=== PATIENT | female | born 1930 | race Caucasian/White ===

== ENCOUNTER 2016-10-29 09:11 | Outpatient (CLI) | payer MEDICARE, OTHER ==
[2015-05-30 21:24] VITALS: BP 155/82
--- NOTE | 2016-10-29 15:04 | Diagnostic Imaging Report ---
CAROLE GRANT [facility] [address] [facility] [address] [address] Report Submission Date: Oct 29, 2016 9:47:08 AM CHILDREN'S LIBRARIAN Patient Study Name: JAILYN GRANT Date: Oct 29, 2016 9:20:49 AM CHILDREN'S LIBRARIAN Modality Type: CR Gender: F Description: LOWER EXTREMITY : 30 Institution: [facility] Physician: CAROLE GRANT 3 views of the left knee History: LT. KNEE- PAIN IN LEFT KNEE X2-3 WEEKS. INCREASED PAIN THIS MORNING IN ANTERIOR KNEE Findings: No comparison studies No evidence of acute fracture or dislocation of the left knee. There is tricompartmental degenerative change. Medial knee joint space and femoral patellar joint space is narrowed Patellar enthesophytes are present, a small suprapatellar effusion is present Bones are demineralized Impression: No evidence of acute fracture or dislocation of the left knee Small suprapatellar effusion Demineralized bones Tricompartmental degenerative change Electronically signed on Oct 29, 2016 9:47:08 AM CHILDREN'S LIBRARIAN by: Sandra RINCON
== END 2016-10-29 09:12 ==
LOC: RAD 09:11
PROVIDERS: ATTEND Family Medicine
DX: M25.562 Pain in left knee (principal)
CPT/HCPCS: 73562

== ENCOUNTER 2017-04-02 20:10 | Outpatient (CLI) | payer MEDICARE, OTHER ==
[2015-05-30 21:24] VITALS: BP 155/82
--- NOTE | 2017-04-03 06:50 | Diagnostic Imaging Report ---
CAROLE GRANT [facility] [address] [facility].[address] [address] Report Submission Date: Apr 02, 2017 9:01:50 PM CDT Patient Study Name: JAILYN GRANT Date: Apr 02, 2017 8:46:22 PM CDT Modality Type: CR Gender: F Description: UPPER EXTREMITY : 30 Institution: [facility] Physician: CAROLE GRANT Examination: Plain film wrist History: Wrist discomfort Comparison exams: None available Findings: 3 views the wrist demonstrates osteopenia. 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 No fracture. No dislocation. No soft tissue abnormality. Impression: Osteopenia and degenerative changes. No acute osseous abnormality Electronically signed on Apr 02, 2017 9:01:50 PM CDT by: Navneet RINCON
== END 2017-04-02 20:11 ==
LOC: RAD 20:10
PROVIDERS: ATTEND Family Medicine
DX: M25.532 Pain in left wrist (principal)
CPT/HCPCS: 73110; L3908

== ENCOUNTER 2017-04-18 12:19 | Outpatient (CLI) | payer MEDICARE, OTHER ==
[2015-05-30 21:24] VITALS: BP 155/82
--- NOTE | 2017-04-18 13:47 | Diagnostic Imaging Report ---
CAROLE GRANT [facility] [address] [facility].[address] [address] Report Submission Date: Apr 18, 2017 1:37:56 PM CDT Patient Study Name: JAILYN GRANT Date: Apr 18, 2017 12:21:53 PM CDT Modality Type: CR Gender: F Description: UPPER EXTREMITY : 30 Institution: [facility] Physician: CAROLE GRANT Examination: Plain film wrist History: Wrist discomfort Comparison exams: 02 April 2017 Findings: 3 views the wrist demonstrates osteopenia. Articular degenerative changes: most significantly involving the 1st carpal metacarpal articulation. No fracture. No dislocation. No soft tissue abnormality. Impression: Osteopenia and degenerative changes. No acute appearing osseous abnormality. Exam stable to the 02 April 2017 examination. If suspect ligamentous /soft tissue abnormality, consider obtaining MRI. Electronically signed on Apr 18, 2017 1:37:56 PM CDT by: Navneet RINCON
== END 2017-04-18 12:20 ==
LOC: RAD 12:19
PROVIDERS: ATTEND Family Medicine
DX: M25.532 Pain in left wrist (principal)
CPT/HCPCS: 73110

== ENCOUNTER 2018-02-03 07:54 | Emergency (ER) | payer MEDICARE, OTHER ==
[2018-02-03 08:30] LABS: BASOPHILS % 0.5 (0.0-1.5); EOSINOPHILS % 2.3 % (0.0-6.8); MEAN CORPUSCULAR HEMOGLOBIN 30.3 pg (28.0-34.0); MEAN CORPUSCULAR VOLUME 92.8 fl (80.0-100.0); MONOCYTES % 5.3 % (0.0-11.0); NEUTROPHILS # 3.9 # k/uL (1.4-7.7)
[2018-02-03 08:38] LABS: eGFR (African) > 60; eGFR (Non-African) > 60
--- NOTE | 2018-02-03 09:27 | ED Physician Documentation ---
Chest Pain - HISTORIAN Historian: patient - HPI Stated Complaint: chest pain Chief Complaint: General Adult Onset: hours Last known Well Date: 02/03/18 Last Known Well Time: 05:30 Context: sleep, rest Severity: moderate (5-6/10) Quality: pressure, tightness Chest Pain Radiation: jaw Chest Pain Signs/Symptoms: denies: nausea, vomiting, diaphoresis, cool extremities, dizziness, dyspnea, tachypnea, tachycardia, hypotension, palpitations, weakness, other Worsened By: nothing Relieved By: nothing Further Comments: yes (87 year old female patient brought in from home for evaluation of chest pain. Patient states she woke up around 0630 with chest pain 6/10, radiating to her jaws. States the pain lasted until the car ride to the hospital. Denies nausea or SOB.) - ROS CONST: none MS/LYMPH: none GI/: none EYES/ENT: none SKIN/ENDO: none NEURO/PSYCH: none - PAST HX CO risk factors: hypertension, hyperlipidemia, other (hypothyroidism) DVT/PE Risk Factors: none TAD/AAA risk factors: none Neuro deficit: other (dementia) GI disease: GERD Lung disease: none Surgeries/Procedures: cardiac stent Allergies/Adverse Reactions: Allergies Allergy/AdvReac Type Severity Reaction Status Date / Time donepezil HCl [From Aricept] AdvReac Unknown nausea Verified 02/03/18 08:45 Home Medications: Ambulatory Orders Medication Instructions Recorded Nitroglycerin 0.4 mg SL DIRECTED PRN #25 05/30/15 tab.subl - SOCIAL HX Smoking History: non-smoker - FAMILY HX Family HX: denies: none - VITAL SIGNS Vital Signs: Vital Signs Temp Pulse Resp BP Pulse Ox 98.4 F 61 18 186/74 99 02/03/18 07:56 02/03/18 09:06 02/03/18 07:56 02/03/18 07:56 02/03/18 09:06 - REVIEWED ASSESSMENTS Nursing Assessment Reviewed: Yes Vitals Reviewed: Yes Progress - Progress Progress: [address] Koch. White to send patient home. - EKG/XRAY/CT EKG: rhythm (SR, no acute change) ED Results Lab/Radiology - Lab Results Lab Results: Lab Results 02/03/18 02/03/18 02/03/18 08:10 08:10 08:10 WBC 6.00 K/ul K/ul (4.00-12.00) RBC 4.91 M/ul M/ul (3.90-5.20) Hgb 14.9 g/dL g/dL (12.0-16.0) Hct 45.6 % % (34.5-46.5) MCV 92.8 fl fl (80.0-100.0) MCH 30.3 pg pg (28.0-34.0) MCHC 32.6 g/dL g/dL (30.0-36.0) RDW 13.4 % % (11.3-14.3) Plt Count 168 K/mm3 K/mm3 (130-400) Neut % (Auto) 64.9 % % (39.0-79.0) Lymph % (Auto) 24.7 % % (16.0-50.0) Sharp % (Auto) 5.3 % % (0.0-11.0) Eos % (Auto) 2.3 % % (0.0-6.8) Baso % (Auto) 0.5 (0.0-1.5) Neut # (Auto) 3.9 # k/uL # k/uL (1.4-7.7) Lymph # (Auto) 1.5 # k/uL # k/uL (0.6-4.0) Sharp # (Auto) 0.3 # k/uL # k/uL (0.0-0.9) Eos # (Auto) 0.1 # k/uL # k/uL (0.0-0.6) Baso # (Auto) 0.0 # k/uL # k/uL (0.0-0.5) Reactive Lymphs % 2.4 % % (0.0-5.0) Reactive Lymphs # 0.1 # k/uL # k/uL (0.0-0.8) Sodium 141 mmol/L mmol/L (136-145) Potassium 3.9 mmol/L mmol/L (3.5-5.1) Chloride 108 mmol/L H mmol/L (98-107) Carbon Dioxide 26 mmol/L mmol/L (22-30) BUN 12 mg/dL mg/dL (7-17) Creatinine 0.70 mg/dL mg/dL (0.52-1.04) Estimated Creat Clear 62 Est GFR ( Amer) > 60 (60 - ) Est GFR (Non-Af Amer) > 60 (60 - ) Glucose 96 mg/dL mg/dL (74-106) Calcium 9.2 mg/dL mg/dL (8.4-10.2) Total Bilirubin 0.7 mg/dL mg/dL (0.2-1.3) AST 18 U/L U/L (15-46) ALT 15 U/L U/L (13-69) Alkaline Phosphatase 97 U/L U/L (38-126) Creatine Kinase 41 U/L U/L (30-135) CK-MB (CK-2) 1.6 ng/mL ng/mL (0.0-5.6) Troponin I < 0.03 ng/mL L ng/mL (0.03-0.06) Total Protein 7.9 g/dL g/dL (6.3-8.2) Albumin 4.1 g/dL g/dL (3.5-5.0) - Orders Orders: ED Orders Category Date Time Status Continuous EKG monitoring Q30M Care 02/03/18 08:06 Active Continuous Pulse Oximetry Q30M Care 02/03/18 08:[address] IV Lock 1T Care 02/03/18 08:06 Active CHEST 2VIEW [RAD] Stat Exams 02/03/18 Taken CBC/PLATELET/DIFF Stat Lab 02/03/18 08:10 Completed CKMB Stat Lab 02/03/18 08:10 Completed CMP Stat Lab 02/03/18 08:10 Completed CREATINE KINASE Stat Lab 02/03/18 08:10 Completed TROPONIN I (cTnI) Stat Lab 02/03/18 08:10 Completed UA W/MICRO IF INDICATED Stat Lab 02/03/18 08:06 Ordered Oxygen Daily Oxygen 02/03/18 08:15 Ordered EKG WITH COMPARISON Stat Ther 02/03/18 08:06 Completed Chest Pain Physical Exam - EXAM General Appearance: mild distress EENT: eye inspection normal, ENT inspection normal, pharynx normal, no signs of dehydration, MARLENE, no nystagmus, TM's nml Respiratory: no resp. distress, chest non-tender (not reproducible with palpation), nml breath sounds CVS: reg. rate & rhythm, no murmur, no gallop, no friction rub, pulses full, pulses equal Abdomen: soft, no organomegaly, normal bowel sounds, no abdominal bruit, no distension Skin: normal color, warm/dry, NR, INT, DR Extremities: non-tender, normal range of motion, no evidence of injury, no edema , J, PERSONAL ASSISTANT Neuro: oriented X3, CN's nml as tested, motor nml, sensation nml, mood/affect nml Discharge Clincal Impression: Non-cardiac chest pain Referrals: Awilda Hill MD [Primary Care Provider] - 2 Days Additional Instructions: Take your morning medications on arrival home. Rest Tylenol or ibuprofen as needed for discomfort Make an follow Er appointment with your primary care doctor in the next 3-5 days. Return to the ER if you have Chest pain with shortness of breath, nausea and sweating all over. Or pain radiating to jaws or shoulders. Condition: Stable Disposition: 01 HOME, SELF-CARE Decision to Admit: NO Decision Time: 09:27
[2018-02-03] MEDS ORDERED: KETOROLAC TROMETHAMINE 30 MG/1ML VIAL ONE (09:31)
[2018-02-03] MEDS: KETOROLAC TROMETHAMINE 30 MG/1ML VIAL IVP ONE (09:34)
[2018-02-03 09:51] VITALS: BP 168/74
--- NOTE | 2018-02-03 10:08 | Diagnostic Imaging Report ---
ASA JULIEN (ADMINISTRATIVE SERVICES ASSISTANT) - ER [facility] [id number] [address] Report Submission Date: February 03, 2018 9:51:58 AM CDT Patient Study Name: JAILYN GRANT Date: February 03, 2018 8:14:00 AM CDT Modality Type: DX Gender: F Description: CHEST : 30 Institution: [facility] Physician: ASA JULIEN (ADMINISTRATIVE SERVICES ASSISTANT) - ER 2 views of the chest History: CHEST PAIN X A FEW HOURS no comparison studies Hyperinflation Heart is normal in size. Aortic calcification is present. Monitoring leads are present over the chest Basilar predominant interstitial lung changes are noted. Minimal left apical pleural thickening is present. Impression: 1. Hyperinflation 2. Minimal bibasilar atelectasis /chronic interstitial lung changes. Apical pleural thickening. 3. Demineralized bones with multilevel thoracic spine degenerative changes. Electronically signed on February 03, 2018 9:51:58 AM CDT by: Sandra RINCON
== END 2018-02-03 09:50 | disposition home or self-care (01) ==
LOC: ED 07:54
DX: R07.89 Other chest pain (principal)
CPT/HCPCS: 71046; 80053; 82550; 82553; 84484; 85025; 93005; J1885; 96372; 99285; S1016

== ENCOUNTER 2018-05-14 12:49 | Outpatient (CLI) | payer MEDICARE, OTHER | END 2018-05-14 12:50 | LOC: LABRHC 12:49 | PROVIDERS: ATTEND Family Medicine | DX: E78.2 Mixed hyperlipidemia (principal); E03.9 Hypothyroidism, unspecified | CPT/HCPCS: 80061; 84443 ==

== ENCOUNTER 2018-11-20 14:04 | Outpatient (CLI) | payer MEDICARE, OTHER ==
[2018-11-20 14:32] LABS: BASOPHILS % 0.7 (0.0-1.5); EOSINOPHILS % 1.9 % (0.0-6.8); MEAN CORPUSCULAR HEMOGLOBIN 30.4 pg (28.0-34.0); MONOCYTES % 7.5 % (0.0-11.0); NEUTROPHILS # 6.5 # k/uL (1.4-7.7)
--- NOTE | 2018-11-21 04:01 | Diagnostic Imaging Report ---
JOHN PADRON [facility] [address] [facility].[address] 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 Cyst formation is present in the lunate. The wrist is osteopenic. chondrocalcinosis of the triangular fibrocartilage is present. Impression multifocal degenerative arthritis Widened scapholunate joint. 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
== END 2018-11-20 14:15 ==
LOC: LAB 14:04
PROVIDERS: ATTEND Family Medicine
DX: M25.431 Effusion, right wrist (principal); M25.531 Pain in right wrist; M24.131 Other articular cartilage disorders, right wrist; M11.231 Other chondrocalcinosis, right wrist; M85.88 Other specified disorders of bone density and structure, other site
CPT/HCPCS: 36415; 73110; 84550; 85025

== ENCOUNTER 2019-07-10 09:38 | Inpatient (IN) | payer MEDICARE, OTHER ==
[2019-07-10] MEDS ORDERED: ONDANSETRON HCL/PF 4 MG/ 2ML VIAL IVP ONE ×2 (09:50→11:29)
[2019-07-10] MEDS ORDERED: 0.9 % SODIUM CHLORIDE 1,000 ML IV ONE (09:50)
--- NOTE | 2019-07-10 09:50 | ED Physician Documentation ---
Nausea/Vomiting/Diarrhea - HISTORIAN Historian: patient - HPI Stated Complaint: vomiting x a few hours Chief Complaint: Nausea,Vomiting,Diarrhea Onset: hours (4) Duration: constant Last known Well Code/Unknown Code: Unknown Timing: sudden onset Context: denies: out of country travel, bad food, recent trauma Severity: mild Further Comments: yes - Associated Symptoms Vomiting: frequent Diarrhea: other (none ). denies: mild Abdominal Pain: none - ROS CONST: none CVS/RESP: denies: chest pain, shortness of breath, cough GI/: none EYES/ENT: none NEURO/PSYCH: other (dizziness ) - PAST HX Past History: other Immunizations: UTD Allergies/Adverse Reactions: Allergies Allergy/AdvReac Type Severity Reaction Status Date / Time donepezil HCl [From Aricept] AdvReac Unknown nausea Verified 07/10/19 10:17 Home Medications: Ambulatory Orders Medication Instructions Recorded Nitroglycerin 0.4 mg SL DIRECTED PRN #25 05/30/15 tab.subl - SOCIAL HX Smoking History: non-smoker Alcohol Use: none Drug Use: none - FAMILY HX Family History: none - VITAL SIGNS Vital Signs: Vital Signs Temp Pulse Resp BP Pulse Ox 96.8 F L 63 20 192/91 96 07/10/19 14:36 07/10/19 16:56 07/10/19 14:36 07/10/19 14:36 07/10/19 14:36 - REVIEWED ASSESSMENTS Nursing Assessment Reviewed: Yes Vitals Reviewed: Yes Progress - Progress Progress: 1000: nausea is improved as long as she lays still per her report DG 1050: Nausea and vomiting have returned after use of the bedpan son at bedside DG 1230: discussed case with Dr Jackson he will admit DG 1235: Nausea has improved DG ED Results Lab/Radiology - Lab Results Lab Results: Lab Results 07/10/19 07/10/19 07/10/19 11:00 10:10 10:10 WBC RBC Hgb Hct MCV MCH MCHC RDW Plt Count Neut % (Auto) Lymph % (Auto) Perry % (Auto) Eos % (Auto) Baso % (Auto) Neut # (Auto) Lymph # (Auto) Perry # (Auto) Eos # (Auto) Baso # (Auto) Sodium Potassium Chloride Carbon Dioxide Anion Gap BUN Creatinine Estimated Creat Clear Est GFR ( Amer) Est GFR (Non-Af Amer) Glucose Calcium Total Bilirubin AST ALT Alkaline Phosphatase Troponin I NT-Pro-B Natriuret Pep 1951.3 pg/mL H pg/mL (15.0-450.0) Total Protein Albumin Triglycerides 148 mg/dL mg/dL (<150) Cholesterol 228 mg/dL H mg/dL (<200) LDL Cholesterol, Calc 153 mg/dL H mg/dL (<130) HDL Direct 45 mg/dL mg/dL (>40) Cholesterol/HDL Ratio 5.0 H (<4.4) TSH Urine pH 7.0 (5.0 - 8.0) Ur Specific [place] 1.020 (1.010-1.030) Urine Protein Negative mg/dL mg/dL (NEGATIVE) Urine Ketones 2+ mg/dL H mg/dL (NEGATIVE) Urine Occult Blood Trace-intact H (NEGATIVE) Urine Nitrite Negative (NEGATIVE) Urine Bilirubin Negative (NEGATIVE) Urine Urobilinogen 0.2 Eu Eu (0.2-1.0) Ur Leukocyte Esterase Trace H (NEGATIVE) Urine Glucose Negative mg/dL mg/dL (NEGATIVE) 07/10/19 07/10/19 07/10/19 10:00 10:00 10:00 WBC 8.60 K/ul K/ul (4.00-12.00) RBC 4.91 M/ul M/ul (3.90-5.20) Hgb 15.0 g/dL g/dL (11.5-16.0) Hct 44.0 % % (34.5-46.5) MCV 90.0 fl fl (80.0-100.0) MCH 30.6 pg pg (28.0-34.0) MCHC 34.2 g/dL g/dL (30.0-36.0) RDW 13.1 % % (11.3-14.3) Plt Count 170 K/mm3 K/mm3 (130-400) Neut % (Auto) 69.3 % % (39.0-79.0) Lymph % (Auto) 23.6 % % (16.0-50.0) Perry % (Auto) 4.9 % % (0.0-11.0) Eos % (Auto) 1.8 % % (0.0-6.8) Baso % (Auto) 0.4 % % (0.0-1.5) Neut # (Auto) 6.0 # k/uL # k/uL (1.4-7.7) Lymph # (Auto) 2.0 # k/uL # k/uL (0.6-4.0) Perry # (Auto) 0.4 # k/uL # k/uL (0.0-0.9) Eos # (Auto) 0.2 # k/uL # k/uL (0.0-0.6) Baso # (Auto) 0.0 # k/uL # k/uL (0.0-0.5) Sodium 142 mmol/L mmol/L (137-145) Potassium 3.2 mmol/L L mmol/L (3.5-5.1) Chloride 107 mmol/L mmol/L (98-107) Carbon Dioxide 22 mmol/L mmol/L (22-30) Anion Gap 16.2 BUN 11 mg/dL mg/dL (7-17) Creatinine 0.52 mg/dL mg/dL (0.52-1.04) Estimated Creat Clear 88 Est GFR ( Amer) > 60 (60 - ) Est GFR (Non-Af Amer) > 60 (60 - ) Glucose 151 mg/dL H mg/dL (74-106) Calcium 9.1 mg/dL mg/dL (8.4-10.2) Total Bilirubin 1.0 mg/dL mg/dL (0.2-1.3) AST 22 U/L U/L (15-46) ALT 10 U/L U/L (0-35) Alkaline Phosphatase 103 U/L U/L (38-126) Troponin I 0.053 ng/mL H ng/mL (0.012-0.034) NT-Pro-B Natriuret Pep Total Protein 8.6 g/dL H g/dL (6.3-8.2) Albumin 4.2 g/dL g/dL (3.5-5.0) Triglycerides Cholesterol LDL Cholesterol, Calc HDL Direct Cholesterol/HDL Ratio TSH 3.570 mIU/l mIU/l (0.465-4.685) Urine pH Ur Specific [place] Urine Protein Urine Ketones Urine Occult Blood Urine Nitrite Urine Bilirubin Urine Urobilinogen Ur Leukocyte Esterase Urine Glucose - Orders Orders: ED Orders Category Date Time Status Continuous EKG monitoring Q1H Care 07/10/19 09:50 Active IV Started NOW Care 07/10/19 09:50 Active CHEST 1VIEW [RAD] Stat Exams 07/10/[address] BRAIN W/O CONTRAST Stat Exams 07/10/19 Completed CBC/PLATELET/DIFF Stat Lab 07/10/19 10:00 Completed CMP Stat Lab 07/10/19 10:00 Completed LIPID PANEL Routine Lab 07/10/19 10:10 Completed NT BNP Stat Lab 07/10/19 10:10 Completed TROPONIN I Stat Lab 07/10/19 10:00 Completed TSH Stat Lab 07/10/19 10:00 Completed UA MACRO DIP ONLY Routine Lab 07/10/19 11:00 Completed 0.9 % Sodium Chloride [Normal Saline] 1,000 ml Med 07/10/19 09:50 Discontinued IV NOW Furosemide [Lasix] Med 07/10/19 12:19 Discontinued 20 mg IVP NOW ONE Ondansetron HCl/Pf [Zofran] Med 07/10/19 09:50 Discontinued 4 mg IVP NOW ONE Ondansetron HCl/Pf [Zofran] Med 07/10/19 11:29 Discontinued 4 mg IVP NOW ONE Potassium Chloride 20 Meq/Ns [KCl 20 Meq/Ns 1000 ml] 1, Med 07/10/19 12:30 Active 000 ml IV Q10H EKG WITH COMPARISON Stat Ther 07/10/19 Ordered Nausea Physical Exam - EXAM General Appearance: no acute distress, alert EENT: eye inspection normal, ENT inspection normal, no signs of dehydration, dry mucous membranes Neck: normal inspection Respiratory: no resp distress, chest non-tender, breath sounds normal CVS: reg rate & rhythm, heart sounds normal, equal pulses Abdomen: non-tender, other (Bowel sounds normal ) Back: non-tender Skin: warm/dry Extremities: non-tender Neuro/Psych: oriented X3 Discharge Clincal Impression: CHF (congestive heart failure) Qualifiers: Heart failure type: other Qualified Code(s): I50.9 - Heart failure, unspecified Nausea & vomiting Qualifiers: Vomiting type: unspecified Vomiting Intractability: intractable Qualified Code(s): R11.2 - Nausea with vomiting, unspecified Comments: Admit per Dr Manuel SANCHEZ Condition: Serious Disposition: ADMITTED INPATIENT Decision to Admit: [id number] Date of Decison to Admit: 07/10/19 Decision Time: 13:20
[2019-07-10 10:36] LABS: eGFR (Non-African) > 60
[2019-07-10 10:43] LABS: BASOPHILS % 0.4 % (0.0-1.5)
--- NOTE | 2019-07-10 11:00 | Diagnostic Imaging Report ---
PATIENT MR#: [id number] PATIENT PATIENT NAME: JAILYN GRANT DATE OF : 1930 REFERRING PHYSICIAN: Shirley Dempsey EXAM DATE: 07/10/2019 ACCESSION NUMBER: [id number] EXAM DESCRIPTION: CT BRAIN W/O CT brain noncontrast Date of study: CLINICAL HISTORY: DIZZNESS; N/V X 1 DAY (Hx) / DIZZINESS (DICOM Hx) (DICOM Hx) TECHNIQUE: 2.5 mm contiguous axial of the brain, noncontrast. Sagittal and coronal multiplanar reconstructions. FINDINGS: There is no evidence of intracranial mass effect, hemorrhage, or acute infarct. The lateral ventricle s are symmetrical and the 4th ventricle is midline without shift. No acute brain parenchymal changes or extra-axial flu id collections are identified. The posterior fossa contents are within normal limits. The calvarium is intact. The visualized sinuses and mastoid air cells are clear. IMPRESSION: No acute intracranial process. Read by: Dr. Tramaine Bolanos Transcribed by: Transcribed Date: Electronically signed by: Dr. Tramaine Bolanos Date signed: 07/10/2019 11:00:26 AM
--- NOTE | 2019-07-10 11:59 | Diagnostic Imaging Report ---
PATIENT MR#: [id number] PATIENT PATIENT NAME: JAILYN GRANT DATE OF : 1930 REFERRING PHYSICIAN: Shirley Dempsey EXAM DATE: 07/10/2019 ACCESSION NUMBER: [id number] EXAM DESCRIPTION: CHEST 1VIEW Indication: Nausea and vomiting with dizziness for one day. Technique: Single portable AP view of the chest was obtained. Comparison: February 03, 2018. Findings: The cardiomediastinal silhouette is upper limits of normal in size. There is no pulmonary edema or hilar enlargement. The thoracic aorta is mildly tortuous and calcified. There is mild biapical pleural th ickening. The lungs appear to be mildly hyperinflated. The lungs demonstrate no confluent opacities, pleural effus ions, or pneumothoraces. Impression: Mildly hyperinflated lungs with no acute cardiopulmonary disease. Read by: Dr. Doroteo Basilio Transcribed by: Doroteo Basilio Transcribed Date: 07/10/2019 11:59:08 AM Electronically signed by: Dr. Doroteo Basilio Date signed: 07/10/2019 11:59:19 AM
[2019-07-10 12:16] LABS: OCCULT BLOOD,URINE TRACE-INTACT (NEGATIVE); UROBILINOGEN URINE 0.2 Eu (0.2-1.0)
[2019-07-10] MEDS ORDERED: FUROSEMIDE 20 MG/2 ML VIAL IVP ONE (12:19)
[2019-07-10] MEDS: POTASSIUM CHLORIDE 20 MEQ/NS 1,000 ML IV SCH ×2 (12:40→22:29)
[2019-07-10 14:39] VITALS: BMI 24.7
[2019-07-10] MEDS ORDERED: NITROGLYCERIN 0.4 MG TAB.SUBL SL PRN (17:58)
--- NOTE | 2019-07-10 18:03 | History and Physical Report ---
History of Present Illnes - History of Present Illness Reason for Visit: Vertigo/Intractible nausea and vomiting History of Present Illness: This is an 88 year old female who says that she was in her usual state of health yesterday and awakened this morning with vertigo, nystagmus and intractable nausea and vomiting. She says that it is better when she keeps her eyes closed. She has not been able to eat much of anything today. Her labs are essentially unremarkable. Her troponin is must barely elevated. Her BNP is also elevated somewhat although she has no evidence of cardiac decompensation. - Past Medical History Cardiac: CAD, HTN, Hyperlipidemia Psych: Other (Mild dementia) Endocrine: Hypothyroidism - Past Surgical History Past Surgical History: Other (Stent in LAD 1999; high grade stenosis lesion in small diagonal branch 2006) - Past Social History Smoke: No Alcohol: None Drugs: None Lives: Alone (son next door) - Health Maintenance Health Maintenance: Influenza Vaccine, Pneumococcal Vaccine Influenza Vaccine: Current for this Influenza Season Pneumonia Vaccine: Yes Resuscitation Status: Resusciation Status Resuscitation Status Do Not Resuscitate Review of Systems - Review of Systems Constitutional: negative: Fever Eyes: negative: pain ENT: Other (Nystagmus). negative: Ear Pain Respiratory: negative: Cough, Dry Cardiovascular: negative: Chest Pain Gastrointestinal: Nausea, Vomiting. negative: Abdominal Pain Genitourinary: negative: Dysuria Musculoskeletal: negative: Neck Pain, Shoulder Pain Skin: negative: Rash Neurological: Weakness, Confusion (chronic) - Medications/Allergies Allergies/Adverse Reactions: Allergies Allergy/AdvReac Type Severity Reaction Status Date / Time donepezil HCl [From Aricept] AdvReac Unknown nausea Verified 07/10/19 10:17 Current Inpatient Medications: Current Inpatient Medications Atorvastatin Calcium (Lipitor) 40 mg PO HS ABIEL Stop: 08/09/19 20:59 Enoxaparin Sodium (Lovenox) 30 mg SQ DAILY ABIEL Stop: 07/25/19 08:59 Potassium Chloride/Sodium Chloride (Kcl 20 Meq/Ns 1000 Ml) 1,000 mls @ 100 mls/hr IV Q10H ABIEL Stop: 08/09/19 12:29 Last Admin: 07/10/19 12:40 Dose: 100 mls/hr Levothyroxine Sodium (Synthroid) 25 mcg PO 0700 ABIEL Stop: 08/10/19 06:59 Memantine (Namenda) 10 mg PO HS ABIEL Stop: 08/09/19 20:59 Metoprolol Succinate (Toprol Xl) 50 mg PO DAILY [facility] Stop: 08/10/19 08:59 Nitroglycerin (Nitroquick) 0.4 mg SL Q5M PRN PRN Reason: Chest Pain Stop: 08/09/19 17:57 Exam - Exam Vital Signs: Vital Signs (72 hours) 07/10/19 07/10/19 07/10/19 09:50 13:19 13:48 Temperature 98.7 F 98.7 F 96.8 F L Pulse Rate 72 Pulse Rate [ 64 64 70 Pulse ox] Respiratory 19 19 20 Rate Blood Pressure 170/90 [Left Arm] Blood Pressure 207/116 192/91 [Right Arm] O2 Sat by Pulse 98 98 96 Oximetry 07/10/19 07/10/19 07/10/19 14:12 14:18 14:22 Temperature 96.8 F L Pulse Rate 70 Pulse Rate [ 70 70 Pulse ox] Respiratory 20 20 Rate Blood Pressure [Left Arm] Blood Pressure 192/91 [Right Arm] O2 Sat by Pulse 96 Oximetry 07/10/19 07/10/19 07/10/19 14:23 14:36 14:47 Temperature 96.8 F L Pulse Rate 70 57 L Pulse Rate [ 70 Pulse ox] Respiratory 20 Rate Blood Pressure [Left Arm] Blood Pressure 192/91 [Right Arm] O2 Sat by Pulse 96 Oximetry 07/10/19 07/10/19 07/10/19 15:59 16:56 17:31 Temperature Pulse Rate 70 63 74 Pulse Rate [ Pulse ox] Respiratory Rate Blood Pressure [Left Arm] Blood Pressure [Right Arm] O2 Sat by Pulse Oximetry 07/10/19 17:48 Temperature 98.1 F Pulse Rate Pulse Rate [ 67 Pulse ox] Respiratory 18 Rate Blood Pressure 155/83 [Left Arm] Blood Pressure [Right Arm] O2 Sat by Pulse 97 Oximetry General: Alert, Oriented to Person, Oriented to Place, Oriented to Time, Average Body Habits HEENT: Atraumatic. No: PERRLA (nystagmus) Neck: No: Stridor, Rigidity Lungs: Clear to auscultation, Normal air movement, Speaks full Sentences. No: Respiratory Distress Cardiovascular: Regular rate Murmur: Systolic Murmur (II/) Abdomen: Normal bowel sounds, Soft Genitourinary: No: Right Inguinal Hernia, Left Inguinal Hernia Male Genitourinary: No: Other Female Genitourinary: No: Other Integumentary: Normal, [place], Warm Extremities: No clubbing, No cyanosis Neurological: Normal speech Psych/Mental Status: Mental status NL - Laboratory Results Laboratory Results: Laboratory Results 07/10/19 07/10/19 07/10/19 10:00 10:00 10:00 WBC 8.60 RBC 4.91 Hgb 15.0 Hct 44.0 MCV 90.0 MCH 30.6 MCHC 34.2 RDW 13.1 Plt Count 170 Neut % (Auto) 69.3 Lymph % (Auto) 23.6 [place] % (Auto) 4.9 Eos % (Auto) 1.8 Baso % (Auto) 0.4 Neut # (Auto) 6.0 Lymph # (Auto) 2.0 [place] # (Auto) 0.4 Eos # (Auto) 0.2 Baso # (Auto) 0.0 Sodium 142 Potassium 3.2 L Chloride 107 Carbon Dioxide 22 Anion Gap 16.2 BUN 11 Creatinine 0.52 Estimated Creat Clear 88 Est GFR ( Amer) > 60 Est GFR (Non-Af Amer) > 60 Glucose 151 H Calcium 9.1 Total Bilirubin 1.0 AST 22 ALT 10 Alkaline Phosphatase 103 Troponin I 0.053 H NT-Pro-B Natriuret Pep Total Protein 8.6 H Albumin 4.2 Triglycerides Cholesterol LDL Cholesterol, Calc HDL Direct Cholesterol/HDL Ratio TSH 3.570 Urine pH Ur Specific [place] Urine Protein Urine Ketones Urine Occult Blood Urine Nitrite Urine Bilirubin Urine Urobilinogen Ur Leukocyte Esterase Urine Glucose 07/10/19 07/10/19 07/10/19 10:10 10:10 11:00 WBC RBC Hgb Hct MCV MCH MCHC RDW Plt Count Neut % (Auto) Lymph % (Auto) [place] % (Auto) Eos % (Auto) Baso % (Auto) Neut # (Auto) Lymph # (Auto) [place] # (Auto) Eos # (Auto) Baso # (Auto) Sodium Potassium Chloride Carbon Dioxide Anion Gap BUN Creatinine Estimated Creat Clear Est GFR ( Amer) Est GFR (Non-Af Amer) Glucose Calcium Total Bilirubin AST ALT Alkaline Phosphatase Troponin I NT-Pro-B Natriuret Pep 1951.3 H Total Protein Albumin Triglycerides 148 Cholesterol 228 H LDL Cholesterol, Calc 153 H HDL Direct 45 Cholesterol/HDL Ratio 5.0 H TSH Urine pH 7.0 Ur Specific [place] 1.020 Urine Protein Negative Urine Ketones 2+ H Urine Occult Blood Trace-intact H Urine Nitrite Negative Urine Bilirubin Negative Urine Urobilinogen 0.2 Ur Leukocyte Esterase Trace H Urine Glucose Negative 07/10/19 16:00 WBC RBC Hgb Hct MCV MCH MCHC RDW Plt Count Neut % (Auto) Lymph % (Auto) [place] % (Auto) Eos % (Auto) Baso % (Auto) Neut # (Auto) Lymph # (Auto) [place] # (Auto) Eos # (Auto) Baso # (Auto) Sodium Potassium Chloride Carbon Dioxide Anion Gap BUN Creatinine Estimated Creat Clear Est GFR ( Amer) Est GFR (Non-Af Amer) Glucose Calcium Total Bilirubin AST ALT Alkaline Phosphatase Troponin I 0.060 H NT-Pro-B Natriuret Pep Total Protein Albumin Triglycerides Cholesterol LDL Cholesterol, Calc HDL Direct Cholesterol/HDL Ratio TSH Urine pH Ur Specific [place] Urine Protein Urine Ketones Urine Occult Blood Urine Nitrite Urine Bilirubin Urine Urobilinogen Ur Leukocyte Esterase Urine Glucose Assessment/Plan - Assessment/Plan (1) Vertigo Status: Acute Current Visit: Yes Assessment: Benign positional vertigo, versus cerebellar pathology. (2) Nausea & vomiting Status: Acute Current Visit: Yes Qualifiers: Vomiting type: unspecified Vomiting Intractability: intractable Qualified Code(s): R11.2 - Nausea with vomiting, unspecified Assessment: Continue Zofran (3) CAD (coronary artery disease) Status: Acute Current Visit: Yes Qualifiers: Coronary Disease-Associated Artery/Lesion type: [place] artery [place] vs. transplanted heart: [place] heart Associated angina: without angina Qualified Code(s): I25.10 - Atherosclerotic heart disease of [place] coronary artery without angina pectoris (4) Dementia Status: Acute Current Visit: Yes Qualifiers: Alzheimer's disease onset: late-onset Dementia behavioral disturbance: without behavioral disturbance Assessment: Continue memantine VTE Assessment - RISK FACTOR SCORE VTE RISK FACTOR SCORES: AGE OVER 60 YEARS, ANTICIPATED BED CONFINEMENT OR IMMOBILIZATION > 24 HOURS - RISK VTE MODERATE RISK: SCORE OF 2 (RISK PROXIMAL DVT 2-4%) PROPHYAXIS NEEDED (On Lovenox)
[2019-07-10] MEDS ORDERED: ONDANSETRON HCL/PF 4 MG/ 2ML VIAL IVP PRN (19:41)
[2019-07-10] MEDS: ATORVASTATIN CALCIUM 20 MG TABLET PO SCH (21:10)
[2019-07-10] MEDS: MEMANTINE HCL 10 MG TABLET PO SCH (21:11)
[2019-07-11 05:42] LABS: eGFR (Non-African) > 60
[2019-07-11] MEDS: LEVOTHYROXINE SODIUM 50 MCG TABLET PO SCH (06:25)
[2019-07-11] MEDS: POTASSIUM CHLORIDE 20 MEQ/NS 1,000 ML IV SCH ×2 (08:25→21:32)
[2019-07-11] MEDS: ENOXAPARIN SODIUM 30 MG/0.3 ML DISP.SYRIN SQ SCH (08:26)
[2019-07-11] MEDS: METOPROLOL SUCCINATE 50 MG TAB.ER.24H PO SCH (08:47)
--- NOTE | 2019-07-11 16:36 | Inpatient Progress Note ---
Subjective - Required Recertification Statement I anticipate X number of days because-include discharge plan: 1 - Review of Systems Events since last encounter: Iliana is still very unsteady on her feet and was unable to make it to the bathroom due to dizziness. She is however much improved from yesterday. General: Denies: Chills, Night Sweats HEENT: Denies: Head Aches Pulmonary: Denies: Dyspnea Cardiovascular: Denies: Chest Pain Gastrointestinal: Nausea, Vomiting Genitourinary: Denies: Dysuria Musculoskeletal: Denies: Neck Pain Neurological: Weakness. Denies: Confusion Objective - Exam Vitals and I&O: Vital Signs Temp 99.4 F 07/11/19 14:00 Pulse 61 07/11/19 16:00 Resp 18 07/11/19 14:00 BP 165/91 07/11/19 14:00 Pulse Ox 93 07/11/19 14:00 Intake & Output 07/10/19 07/11/19 07/11/19 23:59 11:59 23:59 Intake Total 120 180 20 Output Total 175 250 50 Balance -55 -70 -30 Weight 65.487 kg Intake: Oral 120 180 20 Output: Urine 175 250 Emesis 50 Other: Voiding Method Bedpan Bedpan Bedpan # Voids 1 1 General: Alert, Oriented to Person, Oriented to Place Neck: Supple, No JVD Lungs: Clear to auscultation Cardiovascular: Regular rate Abdomen: Normal bowel sounds Neurological: Other (vertigo (no further nystagmus)) - Results Results: Laboratory Results WBC 10.40 K/ul (4.00-12.00) 07/11/19 05:10 RBC 4.50 M/ul (3.90-5.20) 07/11/19 05:10 Hgb 14.0 g/dL (11.5-16.0) 07/11/19 05:10 Hct 40.6 % (34.5-46.5) 07/11/19 05:10 MCV 90.0 fl (80.0-100.0) 07/11/19 05:10 MCH 31.0 pg (28.0-34.0) 07/11/19 05:10 MCHC 34.4 g/dL (30.0-36.0) 07/11/19 05:10 RDW 12.6 % (11.3-14.3) 07/11/19 05:10 Plt Count 168 K/mm3 (130-400) 07/11/19 05:10 Neut % (Auto) 69.3 % (39.0-79.0) 07/10/19 10:00 Lymph % (Auto) 23.6 % (16.0-50.0) 07/10/19 10:00 [place] % (Auto) 4.9 % (0.0-11.0) 07/10/19 10:00 Eos % (Auto) 1.8 % (0.0-6.8) 07/10/19 10:00 Baso % (Auto) 0.4 % (0.0-1.5) 07/10/19 10:00 Neut # (Auto) 6.0 # k/uL (1.4-7.7) 07/10/19 10:00 Lymph # (Auto) 2.0 # k/uL (0.6-4.0) 07/10/19 10:00 [place] # (Auto) 0.4 # k/uL (0.0-0.9) 07/10/19 10:00 Eos # (Auto) 0.2 # k/uL (0.0-0.6) 07/10/19 10:00 Baso # (Auto) 0.0 # k/uL (0.0-0.5) 07/10/19 10:00 Sodium 142 mmol/L (137-145) 07/11/19 05:10 Potassium 3.7 mmol/L (3.5-5.1) 07/11/19 05:10 Chloride 110 mmol/L (98-107) H 07/11/19 05:10 Carbon Dioxide 26 mmol/L (22-30) 07/11/19 05:10 Anion Gap 9.7 07/11/19 05:10 BUN 11 mg/dL (7-17) 07/11/19 05:10 Creatinine 0.65 mg/dL (0.52-1.04) 07/11/19 05:10 Estimated Creat Clear 72 07/11/19 05:10 Est GFR ( Amer) > 60 (60-) 07/11/19 05:10 Est GFR (Non-Af Amer) > 60 (60-) 07/11/19 05:10 Glucose 104 mg/dL (74-106) 07/11/19 05:10 Calcium 9.0 mg/dL (8.4-10.2) 07/11/19 05:10 Total Bilirubin 0.9 mg/dL (0.2-1.3) 07/11/19 05:10 AST 29 U/L (15-46) 07/11/19 05:10 ALT 9 U/L (0-35) 07/11/19 05:10 Alkaline Phosphatase 74 U/L (38-126) 07/11/19 05:10 Troponin I 0.060 ng/mL (0.012-0.034) H 07/10/19 16:00 NT-Pro-B Natriuret Pep 1951.3 pg/mL (15.0-450.0) H 07/10/19 10:10 Total Protein 6.9 g/dL (6.3-8.2) 07/11/19 05:10 Albumin 3.4 g/dL (3.5-5.0) L 07/11/19 05:10 Triglycerides 148 mg/dL (<150) 07/10/19 10:10 Cholesterol 228 mg/dL (<200) H 07/10/19 10:10 LDL Cholesterol, Calc 153 mg/dL (<130) H 07/10/19 10:10 HDL Direct 45 mg/dL (>40) 07/10/19 10:10 Cholesterol/HDL Ratio 5.0 (<4.4) H 07/10/19 10:10 TSH 3.570 mIU/l (0.465-4.685) 07/10/19 10:00 Urine pH 7.0 (5.0 - 8.0) 07/10/19 11:00 Ur Specific [place] 1.020 (1.010-1.030) 07/10/19 11:00 Urine Protein Negative mg/dL (NEGATIVE) 07/10/19 11:00 Urine Ketones 2+ mg/dL (NEGATIVE) H 07/10/19 11:00 Urine Occult Blood Trace-intact (NEGATIVE) H 07/10/19 11:00 Urine Nitrite Negative (NEGATIVE) 07/10/19 11:00 Urine Bilirubin Negative (NEGATIVE) 07/10/19 11:00 Urine Urobilinogen 0.2 Eu (0.2-1.0) 07/10/19 11:00 Ur Leukocyte Esterase Trace (NEGATIVE) H 07/10/19 11:00 Urine Glucose Negative mg/dL (NEGATIVE) 07/10/19 11:00 Assessment/Plan - Assessment/Plan (1) Vertigo Status: Acute Current Visit: Yes Assessment: Encouraged po intake (she is not eating much) Ambulate with assist Hope for discharge to home tomorrow. (2) Nausea & vomiting Status: Acute Current Visit: Yes Qualifiers: Vomiting type: unspecified Vomiting Intractability: intractable Qualified Code(s): R11.2 - Nausea with vomiting, unspecified (3) CAD (coronary artery disease) Status: Acute Current Visit: Yes Qualifiers: Coronary Disease-Associated Artery/Lesion type: [place] artery [place] vs. transplanted heart: [place] heart Associated angina: without angina Qualified Code(s): I25.10 - Atherosclerotic heart disease of [place] coronary artery without angina pectoris (4) Dementia Status: Acute Current Visit: Yes Qualifiers: Alzheimer's disease onset: late-onset Dementia behavioral disturbance: without behavioral disturbance
[2019-07-11] MEDS: ATORVASTATIN CALCIUM 20 MG TABLET PO SCH (21:32)
[2019-07-11] MEDS: MEMANTINE HCL 10 MG TABLET PO SCH (21:32)
[2019-07-12] MEDS: LEVOTHYROXINE SODIUM 50 MCG TABLET PO SCH (06:07)
[2019-07-12] MEDS: POTASSIUM CHLORIDE 20 MEQ/NS 1,000 ML IV SCH ×2 (08:18→14:41)
--- NOTE | 2019-07-12 08:42 | Discharge Summary ---
Discharge Summary - Discharge [place]ary Admission Date: 07/10/19 Discharge Date: 07/12/19 Discharge To: Home History of Present Illness: 88 year old female admitted with sudden onset of vertigo. CT showed no evidence of any bleeding or acute CVA. She was admitted for nausea control and slowly improved. Condition at Discharge: Stable Home Medications: Ambulatory Orders Medication Instructions Recorded Nitroglycerin 0.4 mg SL DIRECTED PRN #25 05/30/15 tab.subl Consultations this Visit: None Procedures this Visit: None Allergies/Adverse Reactions: Allergies Allergy/AdvReac Type Severity Reaction Status Date / Time donepezil HCl [From Aricept] AdvReac Unknown nausea Verified 07/10/19 10:17 Patient Problems: Current Active Problems Problem Status Onset CAD (coronary artery disease) Acute CHF (congestive heart failure) Acute Dementia Acute Nausea & vomiting Acute Nausea & vomiting Acute Vertigo Acute Discharge Summary: She was improved on the day of discharge. She is discharged to home with home health for PT for strengthing. Previous medications are continued and she will follow up with Dr. Hill next week. - Final Diagnosis (1) Vertigo Problems: Markedly improved (2) Nausea & vomiting Problems: Improved (3) CAD (coronary artery disease) Problems: No evidence of acute ischemia (4) Dementia Problems: Mild, chronic
[2019-07-12] MEDS: ENOXAPARIN SODIUM 30 MG/0.3 ML DISP.SYRIN SQ SCH (09:36)
[2019-07-12] MEDS: METOPROLOL SUCCINATE 50 MG TAB.ER.24H PO SCH (09:36)
[2019-07-12 15:16] VITALS: BP 133/73
== END 2019-07-12 14:20 | disposition home or self-care (01) | DRG 392 ==
LOC: ED 09:38 → SOUTH 13:21
PROVIDERS: ADMIT Family Medicine; ATTEND Family Medicine
DX: R11.2 Nausea with vomiting, unspecified (principal); R42 Dizziness and giddiness; I11.0 Hypertensive heart disease with heart failure; I50.9 Heart failure, unspecified; I25.10 Atherosclerotic heart disease of native coronary artery without angina pectoris; E78.5 Hyperlipidemia, unspecified; Z66 Do not resuscitate; E03.9 Hypothyroidism, unspecified; G30.1 Alzheimer's disease with late onset; F02.80 Dementia in other diseases classified elsewhere, unspecified severity, without behavioral disturbance, psychotic disturbance, mood disturbance, and anxiety; Z88.8 Allergy status to other drugs, medicaments and biological substances; Z95.5 Presence of coronary angioplasty implant and graft; Z79.890 Hormone replacement therapy; Z79.899 Other long term (current) drug therapy
CPT/HCPCS: 36415; 70450; 71045; 80053; 80061; 81002; 83880; 84443; 84484; 85025; 85027; J1650; J1940; J2405; J3480; J7030; 93005; 99024; 99221; 99231; 99238; S1016

== ENCOUNTER 2019-09-14 12:44 | Outpatient (CLI) | payer MEDICARE, OTHER ==
[2019-09-14 13:44] LABS: eGFR (Non-African) > 60
[2019-09-14 14:41] LABS: APPEARANCE,URINE CLEAR (CLEAR); COLOR,URINE YELLOW (YELLOW); OCCULT BLOOD,URINE 2+ (NEGATIVE); PH URINE 5.5 (5.0 - 8.0)
[2019-09-14 14:42] LABS: UROBILINOGEN URINE 0.2 Eu (0.2-1.0)
--- NOTE | 2019-09-14 15:52 | Diagnostic Imaging Report ---
PATIENT MR#: [id number] PATIENT PATIENT NAME: JAILYN CHANDLER DATE OF : 1930 REFERRING PHYSICIAN: Luis Chandler EXAM DATE: 09/14/2019 ACCESSION NUMBER: [id number] EXAM DESCRIPTION: ANKLE 3 VIEWS OR MORE CLINICAL HISTORY: ACUTE RIGHT ANKLE PAIN COMPARISON: No study for comparison is available at the time of interpretation. TECHNIQUE: DX right ankle, 3 views Osseous structures: The osseous structures are intact with no evidence of fracture. Plantar calcanea l spur at the plantar fascia insertion, which may predispose to plantar fasciitis. Small posterior calcaneal spur a t the Achilles tendon insertion, which may indicate Achilles tendinosis. Joint spaces: The bones are well aligned, without dislocation. No articular surface abnormality is no maya. Soft tissues: There is diffuse soft tissue edema, more pronounced laterally. IMPRESSION: 1. Diffuse soft tissue edema without displaced fracture. 2. Plantar calcaneal spur at the plantar fascia insertion, which may predispose to plantar fasciitis. Read by: Dr. Barry Keating Transcribed by: Barry Keating Transcribed Date: 09/14/2019 3:50:55 PM Electronically signed by: Dr. Barry Keating Date signed: 09/14/2019 3:51:01 PM
--- NOTE | 2019-09-14 16:00 | Diagnostic Imaging Report ---
PATIENT MR#: [id number] PATIENT PATIENT NAME: JAILYN CHANDLER DATE OF : 1930 REFERRING PHYSICIAN: Luis Chandler EXAM DATE: 09/14/2019 ACCESSION NUMBER: [id number] EXAM DESCRIPTION: FOOT 3 VIEWS OR MORE CLINICAL HISTORY: ACUTE RIGHT FOOT PAIN COMPARISON: No study for comparison is available at the time of interpretation. TECHNIQUE: DX right foot, 3 views Osseous structures: The osseous structures are intact with no evidence of acute fracture. There is a detached osteophyte at the lateral aspect of the 1st proximal phalanx base which appears nonacute. Plantar todd caneal spur at the plantar fascia insertion, which may predispose to plantar fasciitis. Joint spaces: The bones are well aligned, without dislocation. There is mild degenerative arthrosis o f the tarsometatarsal joints. Soft tissues: There is diffuse soft tissue edema, more pronounced dorsally. IMPRESSION: 1. Diffuse dorsal soft tissue edema without displaced fracture. 2. Plantar calcaneal spur at the plantar fascia insertion, which may predispose to plantar fasciitis. 3. DJD of the tarsometatarsal joints. Read by: Dr. Barry Keating Transcribed by: Barry Keating Transcribed Date: 09/14/2019 3:59:22 PM Electronically signed by: Dr. Barry Keating Date signed: 09/14/2019 3:59:22 PM
--- NOTE | 2019-09-14 16:03 | Diagnostic Imaging Report ---
PATIENT MR#: [id number] PATIENT PATIENT NAME: JAILYN CHANDLER DATE OF : 1930 REFERRING PHYSICIAN: Luis Chandler EXAM DATE: 09/14/2019 ACCESSION NUMBER: [id number] EXAM DESCRIPTION: SHOULDER 2 VIEWS OR MORE CLINICAL HISTORY: CHRONIC LEFT SHOULDER PAIN COMPARISON: No study for comparison is available at the time of interpretation. TECHNIQUE: DX left shoulder, 3 views Osseous structures: The osseous structures are intact with no evidence of fracture.There is no osseou s lesion or periosteal reaction. Joint spaces: The bones are well aligned, without dislocation. There is minimal arthritic change of t he glenohumeral articulation in the form small inferior glenoid osteophyte. There is minimal AC joint arthrosis. Soft tissues: There is atherosclerotic calcification of the aortic arch. IMPRESSION: Minimal degenerative changes of the glenohumeral and AC joints. Read by: Dr. Barry Keating Transcribed by: Barry Keating Transcribed Date: 09/14/2019 4:02:37 PM Electronically signed by: Dr. Barry Keating Date signed: 09/14/2019 4:02:37 PM
== END 2019-09-14 12:49 ==
LOC: LAB 12:44
PROVIDERS: ATTEND Family Medicine
DX: I25.10 Atherosclerotic heart disease of native coronary artery without angina pectoris (principal); N39.3 Stress incontinence (female) (male); M25.571 Pain in right ankle and joints of right foot; M79.671 Pain in right foot; M19.012 Primary osteoarthritis, left shoulder
CPT/HCPCS: 36415; 73610; 73630; 80053; 81002; 87086; 87186